=== PATIENT | female | born 1975 | race Two or more races ===

== ENCOUNTER 2017-06-27 16:33 | Inpatient (IN) | payer OTHER ==
[~2017-06-27] VITALS: Ht 165.1 cm; Wt 54.0 kg
== END 2017-06-30 10:53 | disposition home or self-care (01) | DRG 812 ==
LOC: ER 16:33 → OB/GYN 06-28 16:06
PROC: 30233N1 Transfusion of Nonautologous Red Blood Cells into Peripheral Vein, Percutaneous Approach (ICD-10-PCS; principal; 2017-06-28)
DX: D50.0 Iron deficiency anemia secondary to blood loss (chronic) (principal); N93.8 Other specified abnormal uterine and vaginal bleeding; N92.0 Excessive and frequent menstruation with regular cycle

== ENCOUNTER 2017-07-06 06:15 | Day surgery (SDC) | payer OTHER | END 2017-07-06 15:30 | disposition home or self-care (01) | LOC: CIR.AMB 06:15 | DX: N72 Inflammatory disease of cervix uteri (principal) ==

== ENCOUNTER 2018-03-29 05:45 | Inpatient (IN) | payer OTHER ==
[~2018-03-29] VITALS: Ht 165.1 cm; Wt 53.1 kg
[~2018-03-29 05:45] MED LIST: IRON18 MG PO
== END 2018-04-01 10:39 | disposition home or self-care (01) | DRG 743 ==
LOC: O/R 05:45 → OB/GYN 05:45
PROVIDERS: Specialist
PROC: 0UT90ZZ Resection of Uterus, Open Approach (ICD-10-PCS; principal; 2018-03-29 07:00)
DX: D25.1 Intramural leiomyoma of uterus (principal); N80.0 Endometriosis of uterus; N92.1 Excessive and frequent menstruation with irregular cycle; D50.0 Iron deficiency anemia secondary to blood loss (chronic)

== ENCOUNTER 2018-08-17 10:10 | Emergency (ER) | payer OTHER ==
[~2018-08-17] VITALS: Ht 165.1 cm; Wt 54.9 kg
== END 2018-08-17 14:33 | disposition home or self-care (01) ==
LOC: ER 10:10
DX: K52.9 Noninfective gastroenteritis and colitis, unspecified (principal)

== ENCOUNTER 2024-02-28 19:11 | Inpatient (IN) | payer OTHER ==
[~2024-02-28] VITALS: Ht 165.1 cm; Wt 47.6 kg
[2024-02-28] MEDS ORDERED: FAMOtidine 10 MG/ML (4ML VIAL) IV ONE (20:00)
[2024-02-28] MEDS ORDERED: 0.9 % SODIUM CHLORIDE 1,000 ML IV ONE (20:00)
[2024-02-28] MEDS ORDERED: ONDANSETRON HCL 2 MG/ML VIAL IV ONE (20:00)
[2024-02-28] MEDS ORDERED: KETOROLAC TROMETHAMINE 60 MG VIAL IM ONE ×3 (20:00→21:05)
[2024-02-28] MEDS ORDERED: FAMOTIDINE/PF 20 MG/2 ML VIAL ONE (20:38)
[2024-02-28] MEDS ORDERED: ONDANSETRON HCL 2 MG/ML VIAL ONE (20:38)
[2024-02-28 21:21] LABS: HEMATOCRIT 39.9 % (36.0-45.00); HEMOGLOBIN 13.1 g/dL (12.0-15.00); MEAN CORPUSCULAR HEMOGLOBIN 27.2 pg (27.00-32.0); MEAN CORPUSCULAR HGB CONC 32.8 g/dl (32.0-36.0); PLATELET COUNT 380 K/uL (150-450); RED CELL DISTRIBUTION WIDTH 16.7 % (11.5-14.5)
[2024-02-28 21:28] LABS: URINE APPEARANCE Cloudy; URINE BILIRRUBIN Small (NEGATIVE); URINE BLOOD Negative; URINE COLOR Dark Yellow; URINE GLUCOSE Negative (NEGATIVE); URINE LEUKOCYTE Negative; URINE NITRATE Negative; URINE PROTEIN 30 (NEGATIVE)
[2024-02-28 21:29] LABS: URINE CAST 2.44 uL (0.0-1.40); URINE EPITHELIAL CELLS 20.5 uL (0.0-38.8); URINE RBC 9.9 uL (0.0-20.8); URINE WBC 5.4 uL (0.0-23.2)
[2024-02-28 21:42] LABS: URINE KETONE 40 (NEGATIVE); URINE MUCUS HEAVY
[2024-02-28 21:44] LABS: ALBUMIN 3.3 gm/dL (3.4-5.0); BILIRUBIN TOTAL 0.35 mg/dL (0.3-1.2); CALCIUM 9.1 mg/dL (8.5-10.1); CREATININE SERUM 0.64 mg/dL (0.55-1.02); GFR 99.47; GLOBULINA 3.6 G/DL (2.4-3.5); POTASSIUM 4.51 mEq/L (3.5-5.1); TOTAL PROTEIN 6.9 gm/dL (6.4-8.2)
[2024-02-29] MEDS ORDERED: BISACODYL 5 MG TABLET.EC PO STA (02:53)
[2024-02-29] MEDS ORDERED: 0.9 % SODIUM CHLORIDE 1,000 ML IV SCH (09:45)
[2024-02-29] MEDS ORDERED: FAMOTIDINE/PF 20 MG/2 ML VIAL IV SCH (09:49)
[2024-02-29] MEDS ORDERED: ENOXAPARIN SODIUM 40 MG/0.4 ML SYRINGE SUBCUTANEO STA (10:29)
[2024-02-29] MEDS ORDERED: ONDANSETRON HCL 2 MG/ML VIAL IV PRN (10:30)
[2024-02-29] MEDS ORDERED: KETOROLAC TROMETHAMINE 30 MG VIAL IV PRN (10:30)
[2024-02-29] MEDS ORDERED: FAMOTIDINE/PF 20 MG/2 ML VIAL ONE (10:51)
[2024-02-29] MEDS ORDERED: ENOXAPARIN SODIUM 40 MG/0.4 ML SYRINGE SUBCUTANEO ONE (10:51)
[2024-02-29 11:27] VITALS: BP 100/60
[2024-02-29] MEDS ORDERED: PIPERACILLIN/TAZOBACTAM SODIUM 2.25 GM in DEXTROSE 5 % IN WATER 50 ML IV SCH (12:00)
[2024-02-29] MEDS ORDERED: PIPERACILLIN/TAZOBACTAM SODIUM 2.25 GM VIAL IV ONE (16:00)
[2024-02-29 16:49] VITALS: BP 100/68; O2SAT 97
[2024-02-29] MEDS ORDERED: AMINO ACIDS 4.25 %/DEXTROSE 5% 1,000 ML PERIFERAL SCH (17:41)
[2024-03-01 00:44] VITALS: BP 90/53; O2SAT 98
[2024-03-01 07:32] LABS: CALCIUM 8.3 mg/dL (8.5-10.1); CREATININE SERUM 0.55 mg/dL (0.55-1.02); GFR 118.48; POTASSIUM 3.92 mEq/L (3.5-5.1)
[2024-03-01 07:40] LABS: INR 1.07; PARTIAL THROMBOPLASTIN TIME 29.3 SECONDS (22.0-34.0); PROTHROMBIN TIME 11.6 SECONDS (9.0-11.5)
[2024-03-01 08:08] LABS: HEMATOCRIT 30.6 % (36.0-45.00); HEMOGLOBIN 10.2 g/dL (12.0-15.00); MEAN CELL VOLUME 82.3 fL (80.00-100.00); MEAN CORPUSCULAR HEMOGLOBIN 27.3 pg (27.00-32.0); MEAN CORPUSCULAR HGB CONC 33.2 g/dl (32.0-36.0); PLATELET COUNT 282 K/uL (150-450); RED BLOOD COUNT 3.72 M/uL (4.00-6.00); RED CELL DISTRIBUTION WIDTH 16.4 % (11.5-14.5)
[2024-03-01 08:42] VITALS: BP 89/51
[2024-03-01] MEDS ORDERED: ENOXAPARIN SODIUM 40 MG/0.4 ML SYRINGE SUBCUTANEO SCH (09:00)
[2024-03-01 14:39] LABS: CHOL HDL RATIO 4.2 (0-5.0)
[2024-03-01] MEDS ORDERED: PIPERACILLIN/TAZOBACTAM SODIUM 2.25 GM VIAL IV ONE (16:16)
[2024-03-01 17:06] VITALS: BP 106/74
[2024-03-01] MEDS ORDERED: CIPROFLOXACIN IN 5 % DEXTROSE 400 MG/200 ML PIGGYBAG IV SCH (21:00)
[2024-03-02 00:41] VITALS: BP 90/50; O2SAT 98
[2024-03-02] MEDS ORDERED: METRONIDAZOLE/SODIUM CHLORIDE 100 ML IV SCH (01:00)
[2024-03-02 07:58] LABS: ALBUMIN 2.5 gm/dL (3.4-5.0); ALKALINE PHOSPHATASE 43 U/L (50-136); ANION GAP 10 (10.0-20.0); AST/SGOT 10 U/L (15-37); BILIRUBIN TOTAL 0.17 mg/dL (0.3-1.2); BLOOD UREA NITROGEN 14 mg/dL (7-18); BUN CREA RATIO 30 (7.0-25.0); CALCIUM 7.7 mg/dL (8.5-10.1); CARBON DIOXIDE 27 mEq/L (21-32); CHLORIDE 110 mmol/L (98-107); CREATININE SERUM 0.46 mg/dL (0.55-1.02); GFR 145.61; GLOBULINA 2.8 G/DL (2.4-3.5); GLUCOSE FASTING 87 mg/dL (65-100); OSMOLALITY SERUM 285 MOSM/KG (275-295); PHOSPHOROUS 2.7 mg/dL (2.5-4.9); POTASSIUM 4.26 mEq/L (3.5-5.1); SODIUM 143 mmol/L (136-145); TOTAL PROTEIN 5.3 gm/dL (6.4-8.2)
[2024-03-02 08:12] LABS: HEMATOCRIT 31.3 % (36.0-45.00); HEMOGLOBIN 10.3 g/dL (12.0-15.00); MEAN CELL VOLUME 83.1 fL (80.00-100.00); MEAN CORPUSCULAR HEMOGLOBIN 27.2 pg (27.00-32.0); MEAN CORPUSCULAR HGB CONC 32.8 g/dl (32.0-36.0); PLATELET COUNT 285 K/uL (150-450); RED BLOOD COUNT 3.77 M/uL (4.00-6.00); RED CELL DISTRIBUTION WIDTH 16.1 % (11.5-14.5)
[2024-03-02 08:35] VITALS: BP 113/76
[2024-03-02 08:38] LABS: ALT/SGPT < 6 U/L (12-78); C-REACTIVE PROTEIN < 0.29 MG/DL (0.00-0.29)
[2024-03-02] MEDS ORDERED: BISACODYL 5 MG TABLET.EC PO NR (11:45)
[2024-03-02] MEDS ORDERED: POLYETHYLENE GLYCOL 3350 238 GM POWDER PO NR (15:00)
[2024-03-02 17:03] VITALS: BP 101/72
[2024-03-03 00:54] VITALS: BP 107/69
[2024-03-03 06:51] LABS: HEMATOCRIT 31.7 % (36.0-45.00); HEMOGLOBIN 10.4 g/dL (12.0-15.00); MEAN CORPUSCULAR HEMOGLOBIN 26.9 pg (27.00-32.0); MEAN CORPUSCULAR HGB CONC 32.8 g/dl (32.0-36.0); PLATELET COUNT 297 K/uL (150-450); RED BLOOD COUNT 3.86 M/uL (4.00-6.00); RED CELL DISTRIBUTION WIDTH 16.4 % (11.5-14.5)
[2024-03-03 07:08] LABS: INR 1.08; PARTIAL THROMBOPLASTIN TIME 28.4 SECONDS (22.0-34.0); PROTHROMBIN TIME 11.7 SECONDS (9.0-11.5)
[2024-03-03 07:51] LABS: ALBUMIN 2.7 gm/dL (3.4-5.0); ALKALINE PHOSPHATASE 44 U/L (50-136); ALT/SGPT 7 U/L (12-78); ANION GAP 12 (10.0-20.0); AST/SGOT 16 U/L (15-37); BILIRUBIN TOTAL 0.18 mg/dL (0.3-1.2); BILIRUBIN,CONJUGATED < 0.10 mg/dL (0.0-0.2); BILIRUBIN,UNCONJUGATED 0.08 mg/dL (0.0-0.6); BLOOD UREA NITROGEN 9 mg/dL (7-18); BUN CREA RATIO 17 (7.0-25.0); CALCIUM 8.5 mg/dL (8.5-10.1); CARBON DIOXIDE 26 mEq/L (21-32); CHLORIDE 110 mmol/L (98-107); CHOL HDL RATIO 3.9 (0-5.0); CHOLESTEROL 149 mg/dL (0-200); CREATININE SERUM 0.54 mg/dL (0.55-1.02); GFR 121.01; GLOBULINA 2.8 G/DL (2.4-3.5); GLUCOSE FASTING 93 mg/dL (65-100); HDL 38 mg/dl (40-60); LDL 90 mg/dl (0-130); OSMOLALITY SERUM 285 MOSM/KG (275-295); POTASSIUM 3.95 mEq/L (3.5-5.1); SODIUM 144 mmol/L (136-145); TOTAL IRON BINDING CAPACITY 289 ug/dl (250-450); TOTAL PROTEIN 5.5 gm/dL (6.4-8.2); TRIGLYCERIDES 103 mg/dL (0-150); VLDL 20 (0-39)
[2024-03-03 08:37] VITALS: BP 105/74
[2024-03-03 09:16] LABS: BLOOD UREA NITROGEN 9 mg/dL (7-18); UREA CLEARANCE 28.2 ML/MIN
[2024-03-03 17:59] VITALS: BP 119/75
[2024-03-04 01:34] VITALS: BP 111/65
[2024-03-04 07:20] VITALS: BP 108/76
[2024-03-04] MEDS ORDERED: MIDAZOLAM HCL 2 MG/2 ML VIAL IV ONE (12:15)
[2024-03-04] MEDS ORDERED: fentaNYL CITRATE 50 MCG/ML AMPUL IV PUSH ONE (12:15)
[2024-03-04] MEDS ORDERED: DIPHENHYDRAMINE HCL 50 MG/ML VIAL 1ML IV NR (13:00)
[2024-03-04 16:53] VITALS: BP 122/85
[2024-03-05 02:37] VITALS: BP 120/75; O2SAT 98
[2024-03-05 09:08] VITALS: BP 102/68
[2024-03-05] MEDS ORDERED: ACETAMINOPHEN 500 MG GEL..CAP PO ONE (16:17)
[2024-03-05 18:21] VITALS: BP 121/73; O2SAT 0
[2024-03-05] MEDS ORDERED: ACETAMINOPHEN 500 MG GEL..CAP PO STA (18:23)
[2024-03-05] MEDS ORDERED: ONDANSETRON HCL 2 MG/ML VIAL IV STA (18:24)
== END 2024-03-05 18:53 | disposition home or self-care (01) | DRG 376 ==
LOC: ER 19:12 → MEDI 02-29 11:31
PROVIDERS: General Practice; Internal Medicine Hematology & Oncology; Internal Medicine Infectious Disease; ADMIT Internal Medicine; ATTEND Internal Medicine
PROC: BW21YZZ Computerized Tomography (CT Scan) of Abdomen and Pelvis using Other Contrast (ICD-10-PCS; 2024-02-28)
PROC: 0DBH8ZX Excision of Cecum, Via Natural or Artificial Opening Endoscopic, Diagnostic (ICD-10-PCS; principal; 2024-03-04)
PROC: 0DJD8ZZ Inspection of Lower Intestinal Tract, Via Natural or Artificial Opening Endoscopic (ICD-10-PCS; 2024-03-04)
DX: C18.0 Malignant neoplasm of cecum (principal)

== ENCOUNTER 2024-04-07 16:20 | Inpatient (IN) | payer OTHER ==
[~2024-04-07] VITALS: Ht 165.1 cm; Wt 47.6 kg
[2024-04-07] MEDS ORDERED: FAMOTIDINE/PF 20 MG in 0.9 % SODIUM CHLORIDE 8 ML IV PUSH STA (17:49)
[2024-04-07] MEDS ORDERED: 0.9 % SODIUM CHLORIDE 1,000 ML IV SCH ×2 (18:00→23:15)
[2024-04-07] MEDS ORDERED: KETOROLAC TROMETHAMINE 30 MG VIAL IV ONE (18:00)
[2024-04-07] MEDS ORDERED: ONDANSETRON HCL 2 MG/ML VIAL IV ONE (18:00)
[2024-04-07 18:56] LABS: HEMATOCRIT 36.5 % (36.0-45.00); HEMOGLOBIN 11.9 g/dL (12.0-15.00); MEAN CELL VOLUME 80.8 fL (80.00-100.00); MEAN CORPUSCULAR HEMOGLOBIN 26.3 pg (27.00-32.0); MEAN CORPUSCULAR HGB CONC 32.6 g/dl (32.0-36.0); PLATELET COUNT 473 K/uL (150-450); RED BLOOD COUNT 4.52 M/uL (4.00-6.00); RED CELL DISTRIBUTION WIDTH 15.7 % (11.5-14.5)
[2024-04-07 19:20] LABS: ALKALINE PHOSPHATASE 75 U/L (50-136); ALT/SGPT 9 U/L (12-78); AMYLASE 69 U/L (25-115); ANION GAP 9 (10.0-20.0); AST/SGOT 15 U/L (15-37); BILIRUBIN TOTAL 0.27 mg/dL (0.3-1.2); BILIRUBIN,CONJUGATED < 0.10 mg/dL (0.0-0.2); BILIRUBIN,UNCONJUGATED 0.17 mg/dL (0.0-0.6); BLOOD UREA NITROGEN 9 mg/dL (7-18); BUN CREA RATIO 18 (7.0-25.0); CARBON DIOXIDE 29 mEq/L (21-32); CHLORIDE 106 mmol/L (98-107); GFR 132.25; GLOBULINA 3.9 G/DL (2.4-3.5); GLUCOSE FASTING 118 mg/dL (65-100); LIPASE 15 U/L (13-75); OSMOLALITY SERUM 277 MOSM/KG (275-295); POTASSIUM 4.64 mEq/L (3.5-5.1); SODIUM 139 mmol/L (136-145); TOTAL PROTEIN 6.9 gm/dL (6.4-8.2)
[2024-04-07] MEDS ORDERED: MEPERIDINE HCL/PF 25 MG/ML VIAL IM PRN (23:30)
[2024-04-07] MEDS ORDERED: ACETAMINOPHEN 500 MG GEL..CAP PO PRN (23:30)
[2024-04-07] MEDS ORDERED: KETOROLAC TROMETHAMINE 15 MG VIAL IU ONE (23:30)
[2024-04-07] MEDS ORDERED: ONDANSETRON HCL 4 MG in 0.9 % SODIUM CHLORIDE 50 ML IV PRN (23:30)
[2024-04-08] MEDS ORDERED: PIPERACILLIN/TAZOBACTAM SODIUM 3.375 GM in 0.9 % SODIUM CHLORIDE 100 ML IV SCH
[2024-04-08 02:46] VITALS: BP 130/76
[2024-04-08 03:09] VITALS: BP 136/76; O2SAT 99
[2024-04-08 03:10] LABS: INR 1.04; PARTIAL THROMBOPLASTIN TIME 29.9 SECONDS (22.0-34.0); PROTHROMBIN TIME 11.3 SECONDS (9.0-11.5)
[2024-04-08 06:17] LABS: PH,URINE 5.5 (5.0-8.0); URINE APPEARANCE Clear; URINE BILIRRUBIN Negative (NEGATIVE); URINE BLOOD Negative; URINE COLOR Yellow; URINE GLUCOSE Negative (NEGATIVE); URINE KETONE 15 (NEGATIVE); URINE LEUKOCYTE Negative; URINE NITRATE Negative; URINE PROTEIN 30 (NEGATIVE); URINE UROBILINOGEN 0.2 E.U./dl
[2024-04-08 06:22] LABS: URINE BACTERIA 109.6 uL (0.0-1933); URINE EPITHELIAL CELLS 11.4 uL (0.0-38.8); URINE RBC 32.7 uL (0.0-20.8); URINE WBC 4.9 uL (0.0-23.2)
[2024-04-08] MEDS ORDERED: FAMOTIDINE/PF 20 MG in 0.9 % SODIUM CHLORIDE 8 ML IV PUSH SCH (09:00)
[2024-04-08 09:01] VITALS: BP 102/57; BP 124/62; O2SAT 100; O2SAT 95
[2024-04-08 19:28] VITALS: BP 91/63; O2SAT 100
[2024-04-09 00:02] VITALS: BP 80/46; O2SAT 97
[2024-04-09 06:48] LABS: HEMATOCRIT 27.6 % (36.0-45.00); MEAN CELL VOLUME 81.1 fL (80.00-100.00); MEAN CORPUSCULAR HGB CONC 33.2 g/dl (32.0-36.0); PLATELET COUNT 355 K/uL (150-450); RED CELL DISTRIBUTION WIDTH 15.2 % (11.5-14.5)
[2024-04-09 06:59] LABS: HEMOGLOBIN 9.2 g/dL (12.0-15.00)
[2024-04-09 07:00] LABS: ALBUMIN 2.1 gm/dL (3.4-5.0); ALKALINE PHOSPHATASE 51 U/L (50-136); ANION GAP 9 (10.0-20.0); AST/SGOT 9 U/L (15-37); BILIRUBIN TOTAL 0.38 mg/dL (0.3-1.2); BLOOD UREA NITROGEN 10 mg/dL (7-18); BUN CREA RATIO 19 (7.0-25.0); CALCIUM 7.8 mg/dL (8.5-10.1); CARBON DIOXIDE 27 mEq/L (21-32); CHLORIDE 112 mmol/L (98-107); CREATININE SERUM 0.54 mg/dL (0.55-1.02); GFR 121.01; GLOBULINA 2.6 G/DL (2.4-3.5); GLUCOSE FASTING 70 mg/dL (65-100); OSMOLALITY SERUM 284 MOSM/KG (275-295); PHOSPHOROUS 3.1 mg/dL (2.5-4.9); POTASSIUM 3.91 mEq/L (3.5-5.1); SODIUM 144 mmol/L (136-145); TOTAL PROTEIN 4.7 gm/dL (6.4-8.2)
[2024-04-09 07:05] LABS: ALT/SGPT < 6 U/L (12-78); C-REACTIVE PROTEIN 0.88 MG/DL (0.00-0.29)
[2024-04-09 07:55] LABS: URINE APPEARANCE Clear; URINE BILIRRUBIN Negative (NEGATIVE); URINE BLOOD Negative; URINE COLOR Yellow; URINE GLUCOSE Negative (NEGATIVE); URINE KETONE Trace (NEGATIVE); URINE LEUKOCYTE Negative; URINE NITRATE Negative; URINE PROTEIN Negative (NEGATIVE)
[2024-04-09 07:56] LABS: URINE BACTERIA 56.6 uL (0.0-1933); URINE EPITHELIAL CELLS 13.9 uL (0.0-38.8); URINE RBC 2.7 uL (0.0-20.8); URINE WBC 4.3 uL (0.0-23.2)
[2024-04-09 08:00] VITALS: BP 86/62; O2SAT 100
[2024-04-09 19:14] VITALS: BP 97/56; O2SAT 98
[2024-04-09] MEDS ORDERED: FAMOTIDINE/PF 20 MG in 0.9 % SODIUM CHLORIDE 8 ML IV PUSH SCH (21:00)
[2024-04-10] VITALS: BP 111/56; O2SAT 98
[2024-04-10 08:00] VITALS: BP 108/65; O2SAT 100
[2024-04-10 17:08] VITALS: BP 105/72; O2SAT 97
[2024-04-10 23:20] VITALS: BP 93/61; O2SAT 97
[2024-04-11 08:28] VITALS: BP 114/78; O2SAT 100
== END 2024-04-11 13:42 | disposition home or self-care (01) | DRG 389 ==
LOC: ER 16:22 → SURG 23:20
PROVIDERS: General Practice; Internal Medicine Infectious Disease; ADMIT Colon & Rectal Surgery; ATTEND Colon & Rectal Surgery
PROC: BW21YZZ Computerized Tomography (CT Scan) of Abdomen and Pelvis using Other Contrast (ICD-10-PCS; principal; 2024-04-07)
DX: K56.609 Unspecified intestinal obstruction, unspecified as to partial versus complete obstruction (principal); C18.0 Malignant neoplasm of cecum; I95.9 Hypotension, unspecified

== ENCOUNTER 2024-04-25 11:28 | Inpatient (IN) | payer OTHER ==
[~2024-04-25] VITALS: Ht 165.1 cm; Wt 47.6 kg
[2024-04-30] MEDS ORDERED: POVIDONE-IODINE 118 ML BOTT TOP ONE (13:30)
[2024-04-30] MEDS ORDERED: METRONIDAZOLE/SODIUM CHLORIDE 500 MG/100 ML PIGGYBACK IV ONE (13:30)
[2024-04-30] MEDS ORDERED: BUPIVACAINE HCL 30 ML VIAL IV ONE (13:30)
[2024-04-30] MEDS ORDERED: CEFTRIAXONE SODIUM 2,000 MG VIAL IV ONE (13:30)
[2024-04-30] MEDS ORDERED: LIDOCAINE HCL 1% 20 ML VIAL IJ ONE (13:30)
[2024-04-30] MEDS ORDERED: MORPHINE SULFATE 4 MG/ML VIAL IV ONE ×3 (14:50→17:15)
[2024-04-30] MEDS ORDERED: ONDANSETRON HCL 2 MG/ML VIAL IV PRN (16:15)
[2024-04-30] MEDS ORDERED: OxyCODONE HCL 5 MG TABLET (ROXICODONE) PO PRN (16:15)
[2024-04-30] MEDS ORDERED: MORPHINE SULFATE 4 MG/ML CARTRIDGE IV PRN (16:15)
[2024-04-30] MEDS ORDERED: DEXTROSE 50 % IN WATER 0.5 G/ML DISP.SYRIN IV PRN (16:15)
[2024-04-30] MEDS ORDERED: RINGERS SOLUTION,LACTATED 1,000 ML IV SCH (16:15)
[2024-04-30] MEDS ORDERED: HYOSCYAMINE SULFATE 0.125 MG TAB.SUBL SL SCH (17:00)
[2024-04-30] MEDS ORDERED: GABAPENTIN 300 MG CAPSULE PO SCH (17:00)
[2024-04-30] MEDS ORDERED: CELECOXIB 200 MG CAPSULE PO SCH (17:00)
[2024-04-30] MEDS ORDERED: SIMETHICONE 125 MG CAPSULE PO SCH (17:00)
[2024-04-30] MEDS ORDERED: POLYETHYLENE GLYCOL 3350 17 GM BLIST.PACK PO SCH (17:00)
[2024-04-30] MEDS ORDERED: METOCLOPRAMIDE HCL 5 MG/ML VIAL IV SCH (17:00)
[2024-04-30 18:15] LABS: HEMATOCRIT 34.1 % (36.0-45.00); HEMOGLOBIN 10.9 g/dL (12.0-15.00); MEAN CELL VOLUME 82.2 fL (80.00-100.00); MEAN CORPUSCULAR HEMOGLOBIN 26.4 pg (27.00-32.0); MEAN CORPUSCULAR HGB CONC 32.1 g/dl (32.0-36.0); PLATELET COUNT 260 K/uL (150-450); RED BLOOD COUNT 4.14 M/uL (4.00-6.00); RED CELL DISTRIBUTION WIDTH 16.5 % (11.5-14.5)
[2024-04-30 18:51] VITALS: BP 129/76; O2SAT 100
[2024-04-30] MEDS ORDERED: ACETAMINOPHEN 500 MG GEL..CAP PO SCH (20:00)
[2024-04-30] MEDS ORDERED: FAMOTIDINE/PF 20 MG/2 ML VIAL IV PUSH SCH (21:00)
[2024-05-01] VITALS: BP 127/63; O2SAT 100
[2024-05-01 07:28] LABS: HEMATOCRIT 32.3 % (36.0-45.00); HEMOGLOBIN 10.6 g/dL (12.0-15.00); MEAN CELL VOLUME 80.7 fL (80.00-100.00); MEAN CORPUSCULAR HEMOGLOBIN 26.4 pg (27.00-32.0); MEAN CORPUSCULAR HGB CONC 32.7 g/dl (32.0-36.0); PLATELET COUNT 277 K/uL (150-450); RED CELL DISTRIBUTION WIDTH 16.5 % (11.5-14.5)
[2024-05-01 08:02] VITALS: BP 108/67; O2SAT 100
[2024-05-01 08:53] LABS: CALCIUM 8.4 mg/dL (8.5-10.1); CREATININE SERUM 0.5 mg/dL (0.55-1.02); GFR 132.25; MAGNESIUM 1.9 mg/dL (1.8-2.4); PHOSPHOROUS 4.3 mg/dL (2.5-4.9); POTASSIUM 4.31 mEq/L (3.5-5.1)
[2024-05-01] MEDS ORDERED: LACTOBACILLUS ACIDOPHILUS 1 CAP CAP PO SCH (09:00)
[2024-05-01] MEDS ORDERED: LACTULOSE 20 G/30 ML BLIST.PACK PO SCH (09:00)
[2024-05-01 16:00] VITALS: BP 111/67; O2SAT 100
[2024-05-01] MEDS ORDERED: ENOXAPARIN SODIUM 40 MG/0.4 ML SYRINGE SUBCUTANEO SCH (17:00)
[2024-05-01 23:04] VITALS: BP 103/65; O2SAT 100
[2024-05-02 08:10] VITALS: BP 111/72; O2SAT 100
[2024-05-02] MEDS ORDERED: ENOXAPARIN SODIUM 40 MG/0.4 ML SYRINGE SUBCUTANEO SCH (09:00)
[2024-05-02 14:03] VITALS: BP 92/66; O2SAT 100
[2024-05-03] VITALS: BP 104/65; O2SAT 99
[2024-05-03 08:00] VITALS: BP 99/70; O2SAT 100
[2024-05-03 08:16] LABS: HEMATOCRIT 31.6 % (36.0-45.00); HEMOGLOBIN 10.5 g/dL (12.0-15.00); MEAN CELL VOLUME 80.8 fL (80.00-100.00); MEAN CORPUSCULAR HEMOGLOBIN 26.8 pg (27.00-32.0); MEAN CORPUSCULAR HGB CONC 33.2 g/dl (32.0-36.0); PLATELET COUNT 341 K/uL (150-450); RED BLOOD COUNT 3.91 M/uL (4.00-6.00); RED CELL DISTRIBUTION WIDTH 16.6 % (11.5-14.5)
[2024-05-03 16:37] VITALS: BP 107/73; O2SAT 100
[2024-05-04] VITALS: BP 97/56; O2SAT 95
[2024-05-04 08:00] VITALS: BP 118/73; O2SAT 100
== END 2024-05-04 17:07 | disposition home or self-care (01) | DRG 331 ==
LOC: O/R 04-30 08:34 → SURH 04-30 08:34
PROVIDERS: ADMIT Colon & Rectal Surgery; ATTEND Colon & Rectal Surgery
PROC: 07BB4ZZ Excision of Mesenteric Lymphatic, Percutaneous Endoscopic Approach (ICD-10-PCS; 2024-04-30)
PROC: 0DTF4ZZ Resection of Right Large Intestine, Percutaneous Endoscopic Approach (ICD-10-PCS; principal; 2024-04-30 10:30)
DX: C18.0 Malignant neoplasm of cecum (principal); R59.0 Localized enlarged lymph nodes

== ENCOUNTER 2024-06-18 07:30 | Outpatient (CLI) | payer OTHER | END 2024-06-18 07:33 | disposition home or self-care (01) | LOC: NUCLEAR 07:30 | PROVIDERS: ATTEND Internal Medicine Hematology & Oncology | DX: C18.0 Malignant neoplasm of cecum (principal) ==

== ENCOUNTER 2024-08-29 12:32 | Emergency (ER) | payer OTHER ==
[~2024-08-29] VITALS: Ht 165.1 cm; Wt 54.4 kg
[2024-08-29] MEDS ORDERED: ONDANSETRON HCL 2 MG/ML VIAL IV STA (13:26)
[2024-08-29] MEDS ORDERED: 0.9 % SODIUM CHLORIDE 1,000 ML IV STA (13:26)
[2024-08-29] MEDS ORDERED: ONDANSETRON HCL 2 MG/ML VIAL ONE (13:56)
[2024-08-29 14:56] LABS: CALCIUM 9.4 mg/dL (8.5-10.1); CREATININE SERUM 0.7 mg/dL (0.55-1.02); GFR 89.69; POTASSIUM 4.29 mEq/L (3.5-5.1)
[2024-08-29 14:58] LABS: URINE APPEARANCE Clear; URINE BILIRRUBIN Negative (NEGATIVE); URINE BLOOD Negative; URINE COLOR Yellow; URINE GLUCOSE Negative (NEGATIVE); URINE KETONE Negative (NEGATIVE); URINE LEUKOCYTE Negative; URINE NITRATE Negative; URINE PROTEIN Trace (NEGATIVE); URINE UROBILINOGEN 0.2 E.U./dl
[2024-08-29 14:59] LABS: URINE BACTERIA 83.2 uL (0.0-1933); URINE EPITHELIAL CELLS 9.9 uL (0.0-38.8); URINE RBC 6.6 uL (0.0-20.8); URINE WBC 7.1 uL (0.0-23.2)
[2024-08-29 15:02] LABS: URINE CAST 1.03 uL (0.0-1.40)
[2024-08-29 15:16] LABS: HEMATOCRIT 37.7 % (36.0-45.00); MEAN CORPUSCULAR HEMOGLOBIN 22.8 pg (27.00-32.0); MEAN CORPUSCULAR HGB CONC 31.7 g/dl (32.0-36.0); PLATELET COUNT 385 K/uL (150-450); RED BLOOD COUNT 5.24 M/uL (4.00-6.00)
[2024-08-29 15:19] LABS: RED CELL DISTRIBUTION WIDTH 21.9 % (11.5-14.5)
[2024-08-29] MEDS ORDERED: METRONIDAZOLE/SODIUM CHLORIDE 500 MG/100 ML PIGGYBACK IV ONE ×2 (15:45→16:06)
[2024-08-29] MEDS ORDERED: CIPROFLOXACIN IN 5 % DEXTROSE 400 MG/200 ML PIGGYBAG IV ONE ×2 (15:45→16:06)
[2024-08-29] MEDS ORDERED: PEPCID AC20 MG PO (20:17)
[2024-08-29] MEDS ORDERED: CIPRO500 MG PO (20:17)
[2024-08-29] MEDS ORDERED: METRONIDAZOLE500 MG PO (20:17)
[2024-08-29] MEDS ORDERED: INTESTINEX680 M1 PO (20:17)
== END 2024-08-29 20:58 | disposition home or self-care (01) ==
LOC: ER 12:34
PROVIDERS: Emergency Medicine
DX: K52.89 Other specified noninfective gastroenteritis and colitis (principal); Z85.038 Personal history of other malignant neoplasm of large intestine